=== PATIENT | male | born 1975 | race Caucasian/White ===

== ENCOUNTER 2016-12-16 16:37 | Outpatient (CLI) | payer OTHER ==
[2016-12-16 17:23] LABS: #Basophils 0.1 thou/uL (0.0-0.2); #Eosinphils 0.2 thou/uL (0.0-0.7); #Lymphocytes 2.5 thou/uL (1.20-3.40); #Monocytes 0.6 thou/uL (0.11-0.59); #Neutrophils 3.3 thou/uL (1.40-6.50); %Basophils 1.3 % (0.0-1.0); %Eosinophils 2.3 % (0.0-10.0); %Lymphocytes 37.5 % (21.0-51.0); %Monocytes 8.4 % (0.0-10.0); Hematocrit 43.5 % (42.0-52.0); Mean Platelet Volume 9.4 fL (7.4-10.4); White Blood Cell (WBC) Count 6.5 thou/uL (4.8-10.8)
[2016-12-16 18:05] LABS: ALT (SGPT) 50 U/L (8-55); AST (SGOT) 28 U/L (5-34); Alkaline Phosphatase 90 U/L (40-150); Anion Gap 13 mmol/L (10-20); BUN (Urea Nitrogen) 11 mg/dL (8.9-20.6); Bilirubin, Direct 0.2 mg/dL (0.1-0.3); Bilirubin, Total 0.6 mg/dL (0.2-1.2); Calc. Creatinine Clearance 0 mL/min (70-130); Calcium 9.3 mg/dL (7.8-10.44); Carbon Dioxide 27 mmol/L (22-29); Chloride 104 mmol/L (98-107); Estimated GFR-MDRD Greater than 90; Globulin 3.3 g/dL (2.4-3.5); Protein, Total 7.6 g/dL (6.0-8.3)
== END 2016-12-16 16:38 | disposition home or self-care (01) ==
LOC: LABBT 16:37
PROVIDERS: ATTEND Surgery
DX: Z01.812 Encounter for preprocedural laboratory examination (principal); K80.20 Calculus of gallbladder without cholecystitis without obstruction
CPT/HCPCS: 80053; 80076; 85025

== ENCOUNTER 2016-12-20 06:04 | Day surgery (SDC) | payer OTHER ==
[2016-12-16 17:27] VITALS: BMI 29.6
[2016-12-20] MEDS ORDERED: Bupivacaine 0.25% HCL 30 ML VIAL ONE (06:32)
[2016-12-20] MEDS ORDERED: Midazolam HCl 2 mg/2 ml Vial ONE ×2 (06:44→06:48)
[2016-12-20] MEDS ORDERED: Fentanyl 100 MCG/2 ML VIAL ONE (06:45)
[2016-12-20] MEDS ORDERED: Sodium Chloride 0.9% 100 ML ONE (06:48)
[2016-12-20] MEDS ORDERED: Metoclopramide HCl 10 MG/2 ML VIAL ONE (07:40)
[2016-12-20] MEDS ORDERED: Dexamethasone 20 MG/5 ML VIAL ONE (07:40)
[2016-12-20] MEDS ORDERED: Lidocaine 1% PF 5 ML VIAL ONE (07:40)
[2016-12-20] MEDS ORDERED: Propofol 200 MG/20 ML VIAL ONE (07:40)
[2016-12-20] MEDS ORDERED: Ondansetron HCl/PF 4 MG/2 ML Vial ONE (07:40)
[2016-12-20] MEDS ORDERED: Ketorolac Tromethamine 30 MG/ML VIAL ONE (07:40)
[2016-12-20] MEDS ORDERED: Glycopyrrolate 0.2 MG/ML 5 ML SYRINGE ONE (07:40)
--- NOTE | 2016-12-20 10:08 | OP ---
PREOPERATIVE DIAGNOSIS: Symptomatic cholelithiasis. SURGEON: Norman Amador M.D. PROCEDURE PERFORMED: Laparoscopic cholecystectomy. INDICATIONS: A 41-year-old male who has been having episodic right upper quadrant pain. Ultrasound showed cholelithiasis. FINDINGS: Small caliber cystic duct. DESCRIPTION OF THE PROCEDURE: After informed consent was obtained, the patient was taken to the ope rating room and given general endotracheal anesthesia, placed in the supine position. The abdomen w as prepped and draped in the usual fashion. Local anesthesia infiltrated subcutaneously and deep. Subumbilical incision was performed. Subcu divided sharply. Fascia grasped and two stay sutures of 0 Vicryl placed to either side of midline. Midline incised. Digital palpation revealed no local a dhesions. A blunt 10-12 mm trocar inserted. Pneumoperitoneum was created to a pressure of 15 mmHg. A 0 degree laparoscope inserted. Under direct vision, three 5 mm ports placed subcostally. The g allbladder grasped and advanced superiorly. The peritoneum was lysed distally to reveal a small cys tic duct and artery. These were dissected out to expose the critical view. These were triply ligat ed with Hemoclips and divided. The gallbladder was removed from its fossa utilizing electrocautery, removed from the abdomen through the umbilical port. Hemostasis was assured. Trocars and retracto rs removed. The fascia closed with interrupted 0 Vicryl suture. The skin closed with interrupted 4 -0 Rapide. Dermabond applied. The patient tolerated the procedure well and transferred to recovery in good condition. Sponge and needle count verified correct x2.
== END 2016-12-20 09:51 | disposition home or self-care (01) ==
LOC: SDC 06:04
PROVIDERS: ATTEND Surgery
PROC: 0FT44ZZ Resection of Gallbladder, Percutaneous Endoscopic Approach (ICD-10-PCS; principal; 2016-12-20)
DX: K80.10 Calculus of gallbladder with chronic cholecystitis without obstruction (principal); F17.210 Nicotine dependence, cigarettes, uncomplicated; N52.9 Male erectile dysfunction, unspecified; Z79.899 Other long term (current) drug therapy; Z98.84 Bariatric surgery status; Z98.890 Other specified postprocedural states; Z87.442 Personal history of urinary calculi; Z87.19 Personal history of other diseases of the digestive system
CPT/HCPCS: 88304; J0131; J0694; J1100; J1885; J2001; J2250; J2405; J2704; J2765; J3010; J7050; S0020